=== PATIENT | female | born 1950 | race Caucasian/White ===

== ENCOUNTER 2020-06-27 11:25 | Inpatient (IN) ==
[2020-06-27] MEDS ORDERED: SODIUM CHLORIDE 0.9% 1,000 ML IV STA (11:52)
[2020-06-27 12:39] LABS: Basophils % 0.2 % (0.0-0.8); Hematocrit 30.6 VOL% (35.7-47.0); Hemoglobin 10.2 GM/DL (12.0-16.0); Immature Granulocytes % 0.8 %; Immature Granulocytes Absolute 0.04 #; Lymphocytes # 0.7 10*3/uL (1.4-4.0); Lymphocytes % 12.8 % (21.3-54.2); Mean Corpuscular HGB Conc 33.3 GM/DL (32-36); Mean Corpuscular Volume 111.3 FL (87-102); Monocytes % 3.1 % (1.7-12.7); NRBC # 0.18 10*3/uL; Neutrophils % 83.1 % (38.7-73.9); Platelet Count 63 T/CUMM (130-400); Red Blood Count 2.75 MC/CUMM (3.8-5.5); Red Cell Distribution Width 15.8 % (9.3-17.3); White Blood Count 5.2 T/CUMM (4-12)
[2020-06-27 12:58] LABS: Calcium 8.3 MG/DL (8.5-10.1); Osmolality,Calculated 278.1 MOS/KG (273-304); Total Protein 4.6 G/DL (6.4-8.3)
[2020-06-27 13:16] LABS: Anisocytosis 2+; Band Neutrophils 31 % (0-10); Lymphocytes 13 % (20-55); Macrocytosis 2+; Metamyelocytes 2 %; Microcytosis Slight; Nucleated Red Blood Cells 4 (0-5); Platelet Estimate Decreased; Polychromasia 2+; Segmented Neutrophils 53 % (50-85); Total Cells Counted 100
[2020-06-27 13:17] LABS: Poikilocytosis Slight; Tear Drop Cells Slight
[2020-06-27 13:37] LABS: Amorphous Crystals,Urine Occasional /HPF (Few); Apearance,Urine CLOUDY (Clear); Bilirubin,Urine Negative (Negative); Blood, Urine Negative (Negative); Glucose,Urine (UA) Negative (Negative); Ketones,Urine 5 mg/dL (Negative); Nitrite,Urine Negative (Negative); Protein,Urine Negative; Squamous Epithelial Cell,Urine Occasional /HPF (0-10); Urine Color Amber (Yellow); Urine Specific Gravity 1.016 (1.001-1.035)
[2020-06-27] MEDS ORDERED: PIPERACILLIN/TAZOBACTAM 3,375 MG in SODIUM CHLORIDE 0.9% 100 ML IV STA (14:07)
[2020-06-27] MEDS ORDERED: LEVOFLOXACIN INJ 500 MG in PREMIX 1 EACH IV STA (14:07)
[2020-06-27] MEDS ORDERED: ACETAMINOPHEN 325 MG TABLET PO PRN (16:10)
[2020-06-27] MEDS ORDERED: ONDANSETRON 4 MG/2 ML VIAL IV PRN (16:10)
[2020-06-27] MEDS ORDERED: GLUCAGON 1 MG VIAL IM PRN (16:18)
[2020-06-27] MEDS ORDERED: DEXTROSE 50% 25 GM/50 ML VIAL IV PRN (16:18)
[2020-06-27] MEDS ORDERED: SODIUM CHLORIDE 0.9% 500 ML IV ONE (16:20)
[2020-06-27] MEDS ORDERED: NOREPINEPHRINE 8 MG in SODIUM CHLORIDE 0.9% 242 ML IV SCH (16:30)
[2020-06-27] MEDS: DEXAMETHASONE 4 MG/1 ML VIAL IV SCH ×2 (16:57→22:42)
[2020-06-27] MEDS: SODIUM CHLORIDE 0.9% 1,000 ML IV SCH (18:25)
[2020-06-27] MEDS: INSULIN LISPRO 100 UNIT/ML SUBCUT SCH (18:52)
[2020-06-27] MEDS: GLYCOPYRROLATE 1 MG TABLET PEG SCH (21:18)
[2020-06-27] MEDS: LACOSAMIDE 50 MG TABLET PEG SCH (21:18)
[2020-06-27] MEDS: PIPERACILLIN/TAZOBACTAM 3,375 MG in SODIUM CHLORIDE 0.9% 100 ML IV SCH (22:42)
[2020-06-28] MEDS: INSULIN LISPRO 100 UNIT/ML SUBCUT SCH ×5 (00:20→23:53)
[2020-06-28] MEDS: SODIUM CHLORIDE 0.9% 1,000 ML IV SCH (03:37)
[2020-06-28] MEDS: DEXAMETHASONE 4 MG/1 ML VIAL IV SCH ×4 (03:37→22:30)
[2020-06-28 03:57] LABS: Basophils % 0.4 % (0.0-0.8); Hematocrit 30.5 VOL% (35.7-47.0); Immature Granulocytes % 1.6 %; Immature Granulocytes Absolute 0.11 #; Lymphocytes # 0.5 10*3/uL (1.4-4.0); Lymphocytes % 6.9 % (21.3-54.2); Mean Corpuscular HGB Conc 32.8 GM/DL (32-36); Mean Corpuscular Volume 111.7 FL (87-102); Mean Platelet Volume 10.3 FL (9.6-12.0); Monocytes % 3.1 % (1.7-12.7); NRBC # 0.07 10*3/uL; Red Blood Count 2.73 MC/CUMM (3.8-5.5); Red Cell Distribution Width 15.7 % (9.3-17.3); White Blood Count 6.9 T/CUMM (4-12)
[2020-06-28 03:59] LABS: Platelet Count 53 T/CUMM (130-400)
[2020-06-28 04:23] LABS: Band Neutrophils 9 % (0-10); Lymphocytes 4 % (20-55); Platelet Estimate Decreased; Segmented Neutrophils 83 % (50-85); Total Cells Counted 100
[2020-06-28 04:24] LABS: Hypochromasia 1+; Microcytosis Slight; Ovalocytes Slight
[2020-06-28 04:25] LABS: Albumin 1.9 G/DL (3.4-5.0); Calcium 8.7 MG/DL (8.5-10.1); Osmolality,Calculated 278.4 MOS/KG (273-304); Total Protein 4.7 G/DL (6.4-8.3)
[2020-06-28] MEDS: PIPERACILLIN/TAZOBACTAM 3,375 MG in SODIUM CHLORIDE 0.9% 100 ML IV SCH ×3 (06:33→23:45)
[2020-06-28] MEDS: LACOSAMIDE 50 MG TABLET PEG SCH ×2 (08:42→20:16)
[2020-06-28] MEDS: FLUoxetine 20 MG CAPSULE PEG SCH (08:42)
[2020-06-28] MEDS: GLYCOPYRROLATE 1 MG TABLET PEG SCH ×2 (08:43→20:15)
[2020-06-29 04:08] LABS: Calcium 9.3 MG/DL (8.5-10.1); Osmolality,Calculated 285.4 MOS/KG (273-304)
[2020-06-29] MEDS: DEXAMETHASONE 4 MG/1 ML VIAL IV SCH ×4 (05:30→22:05)
[2020-06-29] MEDS: PIPERACILLIN/TAZOBACTAM 3,375 MG in SODIUM CHLORIDE 0.9% 100 ML IV SCH ×3 (06:00→23:53)
[2020-06-29] MEDS: INSULIN LISPRO 100 UNIT/ML SUBCUT SCH ×3 (06:02→18:11)
[2020-06-29] MEDS: FLUoxetine 20 MG CAPSULE PEG SCH (09:07)
[2020-06-29] MEDS: LACOSAMIDE 50 MG TABLET PEG SCH ×2 (09:07→21:00)
[2020-06-29] MEDS: GLYCOPYRROLATE 1 MG TABLET PEG SCH ×2 (09:08→21:01)
[2020-06-29 10:53] LABS: Basophils % 0.3 % (0.0-0.8); Hematocrit 32.4 VOL% (35.7-47.0); Hemoglobin 10.5 GM/DL (12.0-16.0); Immature Granulocytes % 2.5 %; Immature Granulocytes Absolute 0.18 #; Lymphocytes # 0.4 10*3/uL (1.4-4.0); Lymphocytes % 5.5 % (21.3-54.2); Mean Corpuscular HGB Conc 32.4 GM/DL (32-36); Mean Corpuscular Volume 114.9 FL (87-102); Mean Platelet Volume 11.2 FL (9.6-12.0); Monocytes % 3.2 % (1.7-12.7); NRBC # 0.04 10*3/uL; Neutrophils % 88.5 % (38.7-73.9); Red Blood Count 2.82 MC/CUMM (3.8-5.5); Red Cell Distribution Width 15.2 % (9.3-17.3); White Blood Count 7.3 T/CUMM (4-12)
[2020-06-29 10:55] LABS: Platelet Count 70 T/CUMM (130-400)
[2020-06-29 11:20] LABS: Hypochromasia Slight; Lymphocytes 4 % (20-55); Microcytosis Slight; Nucleated Red Blood Cells 1 (0-5); Platelet Estimate Decreased; Segmented Neutrophils 94 % (50-85); Total Cells Counted 100
[2020-06-30] MEDS: INSULIN LISPRO 100 UNIT/ML SUBCUT SCH ×4 (03:28→17:26)
[2020-06-30] MEDS: DEXAMETHASONE 4 MG/1 ML VIAL IV SCH ×4 (04:51→21:49)
[2020-06-30] MEDS: PIPERACILLIN/TAZOBACTAM 3,375 MG in SODIUM CHLORIDE 0.9% 100 ML IV SCH ×3 (06:00→23:23)
[2020-06-30 06:24] LABS: Basophils % 0.3 % (0.0-0.8); Hematocrit 31.2 VOL% (35.7-47.0); Hemoglobin 9.9 GM/DL (12.0-16.0); Immature Granulocytes Absolute 0.29 #; Lymphocytes # 0.8 10*3/uL (1.4-4.0); Lymphocytes % 13.5 % (21.3-54.2); Mean Corpuscular HGB Conc 31.7 GM/DL (32-36); Mean Corpuscular Volume 116.4 FL (87-102); Mean Platelet Volume 13.2 FL (9.6-12.0); Monocytes % 3.8 % (1.7-12.7); NRBC # 0.04 10*3/uL; Neutrophils % 77.4 % (38.7-73.9); Red Blood Count 2.68 MC/CUMM (3.8-5.5); Red Cell Distribution Width 15.3 % (9.3-17.3); White Blood Count 5.8 T/CUMM (4-12)
[2020-06-30 06:29] LABS: Platelet Count 23 T/CUMM (130-400)
[2020-06-30 06:51] LABS: Band Neutrophils 1 % (0-10); Hypochromasia 1+; Lymphocytes 13 % (20-55); Myelocytes 1 %; Platelet Estimate Decreased; Segmented Neutrophils 79 % (50-85); Total Cells Counted 100
[2020-06-30 06:52] LABS: Microcytosis Slight
[2020-06-30 08:30] LABS: Calcium 9.1 MG/DL (8.5-10.1); Osmolality,Calculated 288.5 MOS/KG (273-304)
[2020-06-30] MEDS: FLUoxetine 20 MG CAPSULE PEG SCH (09:22)
[2020-06-30] MEDS: GLYCOPYRROLATE 1 MG TABLET PEG SCH (09:23)
[2020-06-30] MEDS: LACOSAMIDE 50 MG TABLET PEG SCH (11:24)
[2020-07-01] MEDS: GLYCOPYRROLATE 1 MG TABLET PEG SCH ×3 (00:18→22:32)
[2020-07-01] MEDS: LACOSAMIDE 50 MG TABLET PEG SCH ×3 (00:18→22:32)
[2020-07-01] MEDS: INSULIN LISPRO 100 UNIT/ML SUBCUT SCH ×4 (01:27→18:56)
[2020-07-01] MEDS: DEXAMETHASONE 4 MG/1 ML VIAL IV SCH ×4 (05:09→22:32)
[2020-07-01] MEDS: PIPERACILLIN/TAZOBACTAM 3,375 MG in SODIUM CHLORIDE 0.9% 100 ML IV SCH ×3 (06:36→22:32)
[2020-07-01 07:30] LABS: Basophils % 0.4 % (0.0-0.8); Hematocrit 29.9 VOL% (35.7-47.0); Hemoglobin 9.8 GM/DL (12.0-16.0); Immature Granulocytes % 5.6 %; Immature Granulocytes Absolute 0.31 #; Lymphocytes # 0.4 10*3/uL (1.4-4.0); Mean Corpuscular HGB Conc 32.8 GM/DL (32-36); Mean Corpuscular Volume 113.7 FL (87-102); Mean Platelet Volume 11.1 FL (9.6-12.0); Monocytes % 4.7 % (1.7-12.7); NRBC # 0.05 10*3/uL; Neutrophils % 82.3 % (38.7-73.9); Platelet Count 67 T/CUMM (130-400); Red Blood Count 2.63 MC/CUMM (3.8-5.5); Red Cell Distribution Width 14.8 % (9.3-17.3); White Blood Count 5.6 T/CUMM (4-12)
[2020-07-01 07:40] LABS: Calcium 8.5 MG/DL (8.5-10.1); Osmolality,Calculated 281.1 MOS/KG (273-304)
[2020-07-01] MEDS: FLUoxetine 20 MG CAPSULE PEG SCH (09:53)
[2020-07-01 11:49] LABS: Lymphocytes 9 % (20-55); Nucleated Red Blood Cells 1 (0-5); Platelet Estimate Decreased; Segmented Neutrophils 89 % (50-85); Tear Drop Cells 1+; Total Cells Counted 100
[2020-07-02] MEDS: INSULIN LISPRO 100 UNIT/ML SUBCUT SCH ×4 (00:12→20:26)
[2020-07-02] MEDS: DEXAMETHASONE 4 MG/1 ML VIAL IV SCH ×4 (04:43→21:53)
[2020-07-02 05:48] LABS: Basophils % 0.4 % (0.0-0.8); Hematocrit 27.1 VOL% (35.7-47.0); Immature Granulocytes % 10.7 %; Immature Granulocytes Absolute 0.55 #; Lymphocytes # 0.5 10*3/uL (1.4-4.0); Lymphocytes % 9.1 % (21.3-54.2); Mean Corpuscular HGB Conc 33.2 GM/DL (32-36); Mean Corpuscular Volume 112.4 FL (87-102); Mean Platelet Volume 10.8 FL (9.6-12.0); Monocytes % 5.6 % (1.7-12.7); NRBC # 0.08 10*3/uL; Neutrophils % 74.2 % (38.7-73.9); Platelet Count 53 T/CUMM (130-400); Red Blood Count 2.41 MC/CUMM (3.8-5.5); Red Cell Distribution Width 14.6 % (9.3-17.3); White Blood Count 5.1 T/CUMM (4-12)
[2020-07-02 06:01] LABS: Calcium 8.5 MG/DL (8.5-10.1)
[2020-07-02] MEDS: PIPERACILLIN/TAZOBACTAM 3,375 MG in SODIUM CHLORIDE 0.9% 100 ML IV SCH (06:14)
[2020-07-02 06:25] LABS: Band Neutrophils 1 % (0-10); Lymphocytes 3 % (20-55); Metamyelocytes 6 %; Nucleated Red Blood Cells 3 (0-5); Schistocytes Slight; Segmented Neutrophils 88 % (50-85); Total Cells Counted 100
[2020-07-02 06:26] LABS: Tear Drop Cells 1+
[2020-07-02 06:27] LABS: Macrocytosis 1+; Platelet Estimate Decreased
[2020-07-02] MEDS: LACOSAMIDE 50 MG TABLET PEG SCH ×2 (10:02→21:53)
[2020-07-02] MEDS: GLYCOPYRROLATE 1 MG TABLET PEG SCH ×2 (10:02→21:53)
[2020-07-02] MEDS: FLUoxetine 20 MG CAPSULE PEG SCH (10:02)
[2020-07-02] MEDS ORDERED: MEROPENEM 1,000 MG in SODIUM CHLORIDE 0.9% 100 ML IV SCH ×2 (12:30→13:00)
[2020-07-02] MEDS: MEROPENEM 1,000 MG in SODIUM CHLORIDE 0.9% 100 ML IV SCH ×2 (14:04→21:52)
[2020-07-03] MEDS: INSULIN LISPRO 100 UNIT/ML SUBCUT SCH ×3 (01:19→12:37)
[2020-07-03] MEDS: MEROPENEM 1,000 MG in SODIUM CHLORIDE 0.9% 100 ML IV SCH ×2 (05:35→12:37)
[2020-07-03] MEDS: DEXAMETHASONE 4 MG/1 ML VIAL IV SCH (05:35)
[2020-07-03 07:03] LABS: Basophils % 0.5 % (0.0-0.8); Hematocrit 30.7 VOL% (35.7-47.0); Hemoglobin 10.6 GM/DL (12.0-16.0); Immature Granulocytes % 12.7 %; Immature Granulocytes Absolute 0.96 #; Lymphocytes # 0.8 10*3/uL (1.4-4.0); Lymphocytes % 10.2 % (21.3-54.2); Mean Corpuscular HGB Conc 34.5 GM/DL (32-36); Mean Corpuscular Volume 109.3 FL (87-102); Monocytes % 4.9 % (1.7-12.7); Neutrophils % 71.7 % (38.7-73.9); Red Blood Count 2.81 MC/CUMM (3.8-5.5); White Blood Count 7.5 T/CUMM (4-12)
[2020-07-03 07:20] LABS: Platelet Count 76 T/CUMM (130-400)
[2020-07-03 07:29] LABS: Osmolality,Calculated 281.2 MOS/KG (273-304)
[2020-07-03 07:30] LABS: Band Neutrophils 1 % (0-10); Hypochromasia 1+; Lymphocytes 13 % (20-55); Microcytosis Slight; Nucleated Red Blood Cells 4 (0-5); Platelet Estimate Decreased; Segmented Neutrophils 81 % (50-85); Total Cells Counted 100
[2020-07-03] MEDS: LACOSAMIDE 50 MG TABLET PEG SCH (09:07)
[2020-07-03] MEDS: FLUoxetine 20 MG CAPSULE PEG SCH (09:07)
[2020-07-03] MEDS: GLYCOPYRROLATE 1 MG TABLET PEG SCH (09:07)
[2020-07-03] MEDS ORDERED: LEVOFLOXACIN 500 MG TABLET PEG SCH (10:30)
[2020-07-03 11:21] VITALS: BP 132/70
[2020-07-03] MEDS ORDERED: DEXAMETHASONE 4 MG TABLET PEG SCH (15:00)
== END 2020-07-03 14:27 | disposition hospice, home (50) | DRG 871 ==
LOC: N.ED 11:25 → SUATTDRO 16:10 → N.EDINP 16:10 → N.ICU 16:25 → N.4E 06-29 15:37
PROVIDERS: ADMIT Internal Medicine; ATTEND Hospitalist